=== PATIENT | male | born 1955 | race Caucasian/White ===

== ENCOUNTER → 2016-07-01 | Outpatient (CLI) | payer OTHER ==
[~2016-07-01] MED LIST: CARVEDILOL3.125 MG PO; INDOMETHACIN75 MG PO; MOBIC7.5 MG/5 M PO; PRAVASTATIN SOD20 MG PO; PRILOSEC20 MG PO; TRAZODONE HCL150 MG PO; ZESTRIL40 MG PO; ZYLOPRIM PO
--- NOTE | ~2016-07-01 | CT16 ---
[facility] A Service of [facility] RADIOLOGY TEXT RESULTS PATIENT: BALJINDER SINGH LOCATION: [facility] : 51 UNIT #: [id number] AGE: [address]: Morena Mckinley MD SEX: M ORDER DR: [id number] [facility] [address] [place], [place] [address] [id number] O MR#: [id number] Acc #: [id number] NAME: BALJINDER SINGH : 1955 SEX: M STUDY DATE/TIME: 07/01/2016 15:48 UNIT: [facility] ROOM: STUDY DESCRIPTION: CT Angio Chest for PE Attending Physician: Morena Mckinley M.D. Referring Physician: Morena Mckinley M.D. Ordering Physician: Morena Mckinley M.D. Primary Care Physician: Elis Correia Aprn MEDICAL IMAGING REPORT This report is preliminary unless electronic signature is present EXAM CT angio of the chest with contrast pulmonary vessel protocol. DATE OF EXAMINATION 07/01/2016 HISTORY 61-year-old male with shortness of breath for 5 weeks and chest discomfort. COMPARISON None. PROCEDURE 2 mm axial images through the chest after IV contrast administration. 3-D coronal MIP reformatted images were obtained. This CT exam was performed with one or more of the following radiation dose reduction techniques: automatic exposure control, adjustment of mA and/or kV according to patient size, and iterative reconstruction. FINDINGS The study is limited secondary to suboptimal contrast bolus timing. Allowing for this limitation, no central pulmonary embolism is seen. No thoracic aortic aneurysm or dissection is identified. No pathologic adenopathy is evident. Benign calcified granulomatous changes are present in the mediastinum and right hilum and within both lungs. There is mild generalized centrilobular emphysematous change. Minimal curvilinear atelectasis in the posterior right upper lobe. No dense consolidations. IMPRESSION 1. Although the contrast bolus timing is suboptimal for opacification of the pulmonary arteries, no central pulmonary embolism is seen. 2. No acute airspace disease. Benign calcified granulomatous changes [facility] A Service of [facility] RADIOLOGY TEXT RESULTS PATIENT: BALJINDER SINGH LOCATION: [facility] : 51 UNIT #: [id number] AGE: [address]: Morena Mckinley MD SEX: M ORDER DR: are seen throughout the chest. Dictated by... Raquel Washington M.D. THIS IS AN ELECTRONICALLY VERIFIED REPORT Raquel Washington M.D. at 07/02/2016 7:34 AM [place] TD: 07/01/2016 16:58 JOB #: [id number] MEDICAL IMAGING REPORT Page 1 of 1 COPY
[2016-07-01 13:46] LABS: ARTERIAL BLD GAS O2 SATURATION 93.5 % (90.0-100.0); ARTERIAL BLOOD GAS ALLEN TEST NORMAL; ARTERIAL BLOOD GAS ART SITE RIGHT RADIAL; ARTERIAL BLOOD GAS CARBOXY HB 0.1 %sat (0.0-9.0); ARTERIAL BLOOD GAS HCO3 27.7 mmol/L; ARTERIAL BLOOD GAS MET HB 0.5 %sat (0.0-2.0); ARTERIAL BLOOD GAS PCO2 40.7 mmHg (35.0-45.0); ARTERIAL BLOOD GAS PO2 67.7 mmHg (80.0-100); ARTERIAL BLOOD GAS pH 7.442 (7.350-7.450); ARTERIAL DRAW? YES
[2016-07-01 15:46] LABS: POC - CREATININE 1.44 mg/dL (0.64-1.27)
== END | disposition home or self-care (01) ==
LOC: CCAT 13:06
PROVIDERS: Internal Medicine Cardiovascular Disease
DX: R06.02 Shortness of breath (principal)
CPT/HCPCS: 36600; 71275; 82565; 82803; 96360; 96361; Q9967